=== PATIENT | male | born 1950 | race Caucasian/White ===

== ENCOUNTER 2019-11-18 20:37 | Emergency (ER) | payer OTHER ==
[~2019-11-18] VITALS: Ht 165.1 cm; Wt 78.8 kg
--- NOTE | 2019-11-18 21:39 | NUR ---
Vas US being done at bedside at this time.
[2019-11-18 22:07] VITALS: BP 197/91
== END 2019-11-18 22:09 | disposition home or self-care (01) ==
LOC: ER 20:38
DX: M79.604 Pain in right leg (principal); R22.41 Localized swelling, mass and lump, right lower limb; Z86.718 Personal history of other venous thrombosis and embolism; Z98.890 Other specified postprocedural states
CPT/HCPCS: 93971; 99284